=== PATIENT | male | born 1985 | race Caucasian/White ===

== ENCOUNTER 2022-01-02 14:37 | Emergency (ER) | payer BC, SELFPAY ==
[2022-01-02] VITALS (21 sets, daily range): BP systolic 103–129; BP diastolic 61–81; PULSE 66–102; RESP 13–37; TEMP 36.6; O2SAT 97–100
--- NOTE | 2022-01-02 14:52 | XRR_ITS ---
PROCEDURE INFORMATION: Exam: XR Left Ribs Exam date and time: 01/02/2022 4:07 PM Age: 36 years old Clinical indication: Injury or trauma; Other: Stepped on by cow; Rib area; Blunt trauma (contusions or hematomas); Additional info: Cow stomped left anterior lower ribs TECHNIQUE: Imaging protocol: Radiologic exam of the Left ribs. Views: 2 views. COMPARISON: CR XR chest 1V portable [id number] 01/02/2022 4:05 PM FINDINGS: Bones/joints: No evidence of rib fracture. Soft tissues: Normal. XR/XR ribs LT 2V* [id number] IMPRESSION: No acute findings.
--- NOTE | 2022-01-02 14:52 | XRR_ITS ---
PROCEDURE INFORMATION: Exam: XR Left Tibia and Fibula Exam date and time: 01/02/2022 4:10 PM Age: 36 years old Clinical indication: Injury or trauma; Other: Stepped on by cow; Blunt trauma; Lower leg; Left TECHNIQUE: Imaging protocol: Radiologic exam of the Left tibia and fibula. Views: 2 views. COMPARISON: No relevant prior studies available. FINDINGS: Bones/joints: Osseous structures are intact. Negative for fracture. Soft tissues: Normal. XR/XR tibia fibula LT 2V [id number] IMPRESSION: No acute findings.
--- NOTE | 2022-01-02 14:52 | XRR_ITS ---
PROCEDURE INFORMATION: Exam: XR Left Foot Exam date and time: 01/02/2022 4:14 PM Age: 36 years old Clinical indication: Injury or trauma; Other: Stepped on by cow; Blunt trauma; Foot; Left TECHNIQUE: Imaging protocol: Radiologic exam of the Left foot. Views: 3 or more views. COMPARISON: CR XR tibia fibula LT 2V [id number] 01/02/2022 4:10 PM FINDINGS: Bones/joints: Osseous structures are intact. Negative for fracture. Joint spaces are preserved. Soft tissues: Normal. XR/XR foot LT min 3V* [id number] IMPRESSION: No acute findings.
--- NOTE | 2022-01-02 14:52 | XRR_ITS ---
PROCEDURE INFORMATION: Exam: XR Right Hand Exam date and time: 01/02/2022 4:17 PM Age: 36 years old Clinical indication: Injury or trauma; Other: Stepped on by cow; Blunt trauma (contusions or hematomas); Hand; Bilateral; Additional info: Cow stomped TECHNIQUE: Imaging protocol: Radiologic exam of the Right hand. Views: 3 or more views. COMPARISON: No relevant prior studies available. FINDINGS: Bones/joints: Nondisplaced comminuted fracture of the distal tuft of the 1st digit. The rest of the osseous structures of the hand are intact. Soft tissues: Wound along the 1st digit. XR/XR hand RT min 3V* [id number] IMPRESSION: Nondisplaced comminuted fracture of the distal tuft of the 1st digit.
--- NOTE | 2022-01-02 14:52 | XRR_ITS ---
PROCEDURE INFORMATION: Exam: XR Left Hand Exam date and time: 01/02/2022 4:16 PM Age: 36 years old Clinical indication: Injury or trauma; Other: Stepped on by cow; Blunt trauma (contusions or hematomas); Hand; Bilateral; Additional info: Cow stomped TECHNIQUE: Imaging protocol: Radiologic exam of the Left hand. Views: 3 or more views. COMPARISON: No relevant prior studies available. FINDINGS: Bones/joints: Osseous structures are intact. Negative for fracture. Joint spaces are preserved. Soft tissues: Normal. XR/XR hand LT min 3V* [id number] IMPRESSION: No acute findings.
--- NOTE | 2022-01-02 14:52 | XRR_ITS ---
PROCEDURE INFORMATION: Exam: XR Chest Exam date and time: 01/02/2022 4:05 PM Age: 36 years old Clinical indication: Injury or trauma; Other: Stepped on by cow; Blunt trauma (contusions or hematomas); Additional info: Cow stomped TECHNIQUE: Imaging protocol: Radiologic exam of the chest. Views: 1 view. COMPARISON: No relevant prior studies available. FINDINGS: Lungs: Unremarkable. No consolidation. Pleural spaces: Unremarkable. No pleural effusion. No pneumothorax. Heart/Mediastinum: Unremarkable. No cardiomegaly. Bones/joints: Unremarkable. XR/XR chest 1V portable [id number] IMPRESSION: No acute findings.
--- NOTE | 2022-01-02 14:57 | PC.NURSE ---
pt reports he was loading cattle when one of the last cows decided to turn around. States his left foot got caught in the gate and the cow pushed through, pt said stretching me out. Pt denies being stepped on by cow. Pt c/o pain to left foot, left side of ribs, and right hand. laceration to right hand along index finger and thumb. abrasion to left hand, left foot, and left ankle. no visual abnormalities seen to chest, abdomen, or extremities. pedal pulses palpable to BLE. pt appears to have decreased ROM to LLE. PERRL. speech clear. speaking in complete sentences without difficulty.
[2022-01-02 15:07] LABS: Basophils # 0.1 10^3/uL (0.0-0.1); Basophils % 0.7 %; Eosinophils % 0.5 %; Hematocrit 45.3 % (42.0-52.0); Hemoglobin 15.4 g/dL (11.7-16.6); Lymphocytes # 2.4 10^3/uL (0.8-4.8); Lymphocytes % 31.4 %; Mean Corpuscular Hemoglobin 28.8 pg (28.0-34.0); Mean Corpuscular Volume 84.8 fl (80-94); Mean Platelet Volume 9.9 fL (7.4-10.4); Monocytes # 0.5 10^3/uL (0.2-0.9); Monocytes % 6.5 %; Neutrophils # 4.66 10^3/uL (1.8-7.7); Neutrophils % 60.6 %; Nucleated Red Blood Cells % 0 %; Platelet Count 385 10^3/cmm (130-400); Red Blood Count 5.34 10^6/uL (4.1-5.3); Red Cell Distribution Width 12.2 % (12.1-15.1); White Blood Count 7.7 10^3/uL (4.0-10.0)
[2022-01-02] MEDS: tetanus-dipt-pertussis 0.5 mL SDV IM (15:25)
[2022-01-02] MEDS: ondansetron 2 mg/ML SDV 2 mL 4 MG IVP (15:28)
[2022-01-02] MEDS: LORazepam 2 mg/mL INJ 1 mL 1 MG IVP (15:32)
[2022-01-02 15:34] LABS: Alanine Aminotransferase 21 U/L (0-41); Albumin Level 4.6 g/dL (3.5-5.2); Alkaline Phosphatase 65 U/L (40-130); Anion Gap 20.6 (5-19); Aspartate Amino Transferase 20 U/L (0-40); Blood Urea Nitrogen 14 mg/dL (6-20); Calcium 9.9 mg/dL (8.5-10.5); Carbon Dioxide 19 mmol/L (22-29); Chloride 100 mmol/L (98-107); Globulin 2.7 g/dL (1.3-4.6); Glomerular Filtration Rate 76.2 mL/min (90-130); Glucose 170 mg/dL (65-115); Osmolality Calculated 286 mOsm/kg (285-295); Potassium 3.6 mmol/L (3.5-5.1); Sodium 136 mmol/L (136-145); Total Bilirubin 0.8 mg/dL (0.15-1.2); Total Protein 7.3 g/dL (6.6-8.7)
[2022-01-02] MEDS: HYDROmorphone 1 mg/mL INJ 1 mL 0.5 MG IVP (15:34)
--- NOTE | 2022-01-02 17:37 | ED_ITS ---
HPI - Trauma General: Chief Complaint: Trauma Stated Complaint: cow ran over Time Seen by Provider: 01/02/22 14:40 Source: patient Mode of arrival: EMS Limitations: no limitations History of Present Illness: 36-year-old male was loading a cow onto a trailer. He got into a bad spot and the cow backed him up. He got stepped on on his right thumb and left ankle and foot. He got a bruise and some pain down the right hyman and an abrasion and bruise over his left MCPs. His left rib cage is painful. His tetanus does need updated. Associated symptoms: Denies abdominal pain, back pain, headache(s), nausea, syncope or vomiting Review of Systems General: Reports: 10 or more systems reviewed and unremarkable except in HPI and below Const: Reports: other (Left chest wall pain) Eyes: Denies: change in vision ENMT: Denies: throat pain Card: Denies: edema or syncope Resp: Denies: dyspnea or productive cough GI: Denies: abdominal pain, nausea, vomiting or diarrhea : Denies: flank pain, dysuria or urinary frequency Musc: Reports: extremity pain and joint pain (Right thumb); Denies: neck pain or back pain Skin/Breast: Reports: other (Laceration) Neuro: Reports: numbness in extremities (Numbness in the right thumb); Denies: headache(s), weakness in extremities, lack of coordination or difficulty walking Psych: Reports: anxiety Physical Exam Const: COMMON NORMALS: average body habitus, patient oriented x3, no limitations, healthy appearing, alert and well nourished EXAM LIMITATIONS: other limitations (anxiety/panic) HENMT: COMMON NORMALS: normocephalic, atraumatic and external ears normal HEAD & SCALP: normocephalic and atraumatic FACE & SINUS: normal facial exam and face symmetric EXTERNAL EAR: Yes external ears normal MOUTH: no muffled voice Eye: COMMON NORMALS: EOMs intact bilaterally and conjunctivae normal CONJUNCTIVA: Yes conjunctivae normal Neck/C-Spine: COMMON NORMALS: no JVD GENERAL: Yes normal visual inspection and Yes trachea midline CERVICAL SPINE: Yes cervical ROM normal, No pain with cervical ROM and No collar present Chest: CHEST: No abnormal inspection of the chest, Yes Symmetrical chest wall rise, No crepitus, No localized rib tenderness with anteroposterior compression, No Sternal flail present, Yes tenderness (left anterior inferior ribs), No abrasion, No Ecchymosis present and No wounds Resp: COMMON NORMALS: normal respiratory effort, No use of accessory muscles and clear to auscultation bilaterally AUSCULTATION: clear to auscultation bilaterally Cardio: COMMON NORMALS: no JVD, regular rate and regular rhythm RATE: re gular rate RHYTHM: regular rhythm GI: COMMON NORMALS: Soft to palpation PALPATION: Yes Soft to palpation, No Tenderness to palpation present (GI) and No Guarding due to palpation present (GI) Back/Pelvis: GENERAL BACK: No ecchymosis, No swelling and No tenderness PELVIS: Yes no pain with anterior-posterior compression and Yes no pain with lateral compression Extremity: NARRATIVE EXTREMITY EXAM: RUE: large laceration right thumb. Tendons are intact with oppostion, flexion, extension, abduction. Probable open fracture. No other RUE wounds/trauma noted. The wound does have some debris around the margins. LUE: contusion and abrasion over 2-4 mcps, otherwise unremarkable. SMCs normal. RLE: contusion right hyman, no suspected fractures. AROM and PROM normal throughout. LLE: Swelling, bruising, tenderness left ankle and foot. Pulses normal. Sensation normal. Neuro: COMMON NORMALS: patient oriented x3, moves all extremities, no focal motor deficits and no sensory deficits noted SENSORIUM/ORIENTATION: Yes alert Psych: COMMON NORMALS: mental status grossly normal, Normal thought process present, cooperative, normal affect and speech normal SPEECH: Yes normal speech THOUGHT PROCESS: Normal thought process present Skin: COMMON NORMALS: no rashes or lesions noted, turgor normal and no jaundice GENERAL SKIN EXAM: no rashes or lesions noted and turgor normal Procedures Laceration Laceration 1: Site: hand (right first finger) Side (If applicable): right Size (cm): 5 Description: irregular and contaminated Depth: involves muscle layer and involves tendon Local Anesthetic: lidocaine 1% Amount of anesthesia used (mL): 5 Pre-repair: wound explored and irrigated extensively (iodine/saline mixture 1.5 liters (scrub, spray, pressure with syringe), hydrogen peroxide 20 cc) Size (cm): 3-0 Number of sutures: 3 Technique: simple, interrupted Nerve Block Nerve Block 1: Time out performed: No (Patient, site identified. Allergies identified.) Local Anesthetic: lidocaine 1% Amount of anesthesia used (mL): 5 Side: right Nerve Blocks: digital Procedure Successful: Yes Patient Tolerated Procedure: well Complications: none Course Vital Signs: Vital signs: Vital Signs Temperature 97.8 F 01/02/22 14:49 Pulse Rate 83 01/02/22 19:35 Respiratory Rate 17 01/02/22 19:35 Blood Pressure 129/78 01/02/22 19:35 Pulse Oximetry 98 01/02/22 19:35 MDM - Trauma Medical Decision Making No life threatening trauma. ABCs intact on primary exam. Xrays obtained. No fractures of the LUE, RLE, LLE. There is an open fracture of the right thumb, at the tuft. There is a large laceration on the ulnar aspect and some numbness on that aspect of the finger. The thumbnail is not attached except at the base/cuticle. Dr Crowell was consulted and examined the patient in the ER. He has advised copious irrigation of the wound and loose closure; prescribe augmentin. He will follow-up patient in clinic. He does not advise any operative treatment. I extensively cleaned the wound with saline, then saline mixed with povidone iodine, then scrubbed, then pressure washed it with a syringe and needle then scrubbed again and irrigated it again. Per orthopedic surgery recommendations, the wound was closed loosely with 3 large bites from 3-0 Prolene. Patient was discharged with anti-inflammatories, pain medication, antibiotics. Case management has been consulted to help arrange for follow-up on Saturday with orthopedic surgery. Patient was given return precautions. A prefabricated splint was applied to the left ankle and crutches were supplied. Lab Data 01/02/22 Unknown 01/02/22 Unknown Radiology Impressions Chest X-Ray 01/02/22 14:52 IMPRESSION: No acute findings. Foot X-Ray 01/02/22 14:52 IMPRESSION: No acute findings. Hand X-Ray 01/02/22 14:52 IMPRESSION: Nondisplaced comminuted fracture of the distal tuft of the 1st digit. Ribs X-Ray 01/02/22 14:52 IMPRESSION: No acute findings. Tibia/Fibula X-Ray 01/02/22 14:52 IMPRESSION: No acute findings. Laboratory Results WBC 7.7 10^3/uL (4.0-10.0) 01/02/22 Unknown RBC 5.34 10^6/uL (4.1-5.3) H 01/02/22 Unknown Hgb 15.4 g/dL (11.7-16.6) 01/02/22 Unknown Hct 45.3 % (42.0-52.0) 01/02/22 Unknown MCV 84.8 fl (80-94) 01/02/22 Unknown MCH 28.8 pg (28.0-34.0) 01/02/22 Unknown MCHC 34.0 g/dL (30.0-36.0) 01/02/22 Unknown RDW 12.2 % (12.1-15.1) 01/02/22 Unknown Plt Count 385 10^3/cmm (130-400) 01/02/22 Unknown MPV 9.9 fL (7.4-10.4) 01/02/22 Unknown Neut % (Auto) 60.6 % 01/02/22 Unknown Lymph % (Auto) 31.4 % 01/02/22 Unknown [place] % (Auto) 6.5 % 01/02/22 Unknown Eos % (Auto) 0.5 % 01/02/22 Unknown Baso % (Auto) 0.7 % 01/02/22 Unknown Neut # (Auto) 4.66 10^3/uL (1.8-7.7) 01/02/22 Unknown Lymph # (Auto) 2.4 10^3/uL (0.8-4.8) 01/02/22 Unknown [place] # (Auto) 0.5 10^3/uL (0.2-0.9) 01/02/22 Unknown Eos # (Auto) 0.0 10^3/uL (0.0-0.8) 01/02/22 Unknown Baso # (Auto) 0.1 10^3/uL (0.0-0.1) 01/02/22 Unknown Nucleated RBC % (auto) 0 % 01/02/22 Unknown Nucleated RBCs # 0.0 /100WBC 01/02/22 Unknown Sodium 136 mmol/L (136-145) 01/02/22 Unknown Potassium 3.6 mmol/L (3.5-5.1) 01/02/22 Unknown Chloride 100 mmol/L (98-107) 01/02/22 Unknown Carbon Dioxide 19 mmol/L (22-29) L 01/02/22 Unknown Anion Gap 20.6 (5-19) H 01/02/22 Unknown BUN 14 mg/dL (6-20) 01/02/22 Unknown Creatinine 1.1 mg/dL (0.7-1.2) 01/02/22 Unknown GFR Calculation 76.2 mL/min (90-130) L 01/02/22 Unknown Glucose 170 mg/dL (65-115) H 01/02/22 Unknown Calculated Osmolality 286 mOsm/kg (285-295) 01/02/22 Unknown Calcium 9.9 mg/dL (8.5-10.5) 01/02/22 Unknown Total Bilirubin 0.8 mg/dL (0.15-1.2) 01/02/22 Unknown AST 20 U/L (0-40) 01/02/22 Unknown ALT 21 U/L (0-41) 01/02/22 Unknown Alkaline Phosphatase 65 U/L (40-130) 01/02/22 Unknown Total Protein 7.3 g/dL (6.6-8.7) 01/02/22 Unknown Albumin 4.6 g/dL (3.5-5.2) 01/02/22 Unknown Globulin 2.7 g/dL (1.3-4.6) 01/02/22 Unknown Discharge Plan Discharge Patient Disposition: Home Clinical Impression: Contusion of hand, left, Abrasion of hand, left, Open fracture of right thumb, Laceration of right thumb with damage to nail, Contusion of lower limb, right, Sprain and strain of left ankle, Contusion of left lower leg, initial encounter Condition: Stable Prescriptions: New amoxicillin-pot clavulanate 875-125 mg tablet 1 tab PO BID Qty: 20 0RF hydrocodone-acetaminophen 7.5-325 mg tablet 1 tab PO Q6H PRN (Reason: pain) 4 Days Qty: 14 0RF naproxen 375 mg tablet 375 mg PO BID 7 Days Qty: 14 0RF (DME) Xeroform Petrolatum Dressing 2 X 2 bandage See Rx Instructions .ROUTE Qty: 30 0RF Rx Instructions: As directed Discharge Orders: Discharge ED (Routine); Ordered 01/02/22 Ordered By: Blaine Ramsay Referrals: Shaun Crowell MD [Physician] - 01/08/22 (Right thumb laceration, open fracture) Discharge Diet: Usual diet Discharge Activity: Use walker/crutches as instructed Patient Instructions: Ankle Sprain (ED), Acute Wound Care (ED), Finger Laceration (ED), Opioid Safety, Pain Management Activity Restrictions/Additional Instructions: Change dressing daily. Keep wound clean and dry. Take naproxen twice daily for pain. You can take hydrocodone if you have severe pain, take a laxative bc you will get constipated. Follow-up with Dr Crowell on Saturday next week. Call to confirm the appointment. Take antibiotics as prescribed. Take probiotics from over the counter for one month. Return if there are signs of infection (see handout). Coding Level of Care Code ED [employer] for [employer]in Tovar
[2022-01-02] MEDS: ondansetron 4 MG Tablet PO (17:55)
[2022-01-02] MEDS: HYDROcodone-acetaminophen 10-325 mg Tablet 1 TAB PO (17:55)
[2022-01-02] MEDS: metroNIDAZOLE IV 500 MG/100 ML PREMIX 100 MG IV (17:57)
[2022-01-02] MEDS: ciprofloxacin 400 MG/200 ML PREMIX 200 MG IV (18:01)
--- NOTE | 2022-01-02 19:17 | PC.NURSE ---
report given to CORTNEY Young to assume care
--- NOTE | 2022-01-03 10:27 | DCPLANNER ---
Addendum entered by Jayla Trujillo 01/23/22 13:41: Patient had a follow up appointment scheduled with ortho - patient did attend appointment. Addendum entered by Jayla Trujillo 01/04/22 09:49: Patient has a follow up appointment scheduled for Sunday, January 09, 2022 at 10:00 with ortho. Clinic will call patient with appointment information. Original Note: property claims manager had message to schedule a follow up for patient with ortho. property claims manager sent patients information to the front office staff at ortho. Patients information will be printed and reviewed. Clinic will call patient with appointment information.
== END 2022-01-02 19:37 | disposition home or self-care (01) ==
PROVIDERS: Emergency Provider Emergency Medicine
DX: S60.222A Contusion of left hand, initial encounter (principal); S80.12XA Contusion of left lower leg, initial encounter; S80.11XA Contusion of right lower leg, initial encounter; S60.512A Abrasion of left hand, initial encounter; S62.524B Nondisplaced fracture of distal phalanx of right thumb, initial encounter for open fracture; S93.402A Sprain of unspecified ligament of left ankle, initial encounter; S96.912A Strain of unspecified muscle and tendon at ankle and foot level, left foot, initial encounter; W55.29XA Other contact with cow, initial encounter; Z23 Encounter for immunization
CPT/HCPCS: 12002; 12042; 71045; 71100; 73130; 73590; 73630; 80053; 85025; 90471; 90715; 96365; 96367; 96375; 99285; J0744; J1170; J2060; J2405; J3490; Q0162

== ENCOUNTER → 2022-01-09 09:58 | Outpatient (BNVA) | payer BC, SELFPAY | PROVIDERS: Referring Provider Emergency Medicine; Visit Provider Orthopaedic Surgery | DX: S62.521A Displaced fracture of distal phalanx of right thumb, initial encounter for closed fracture (principal) | CPT/HCPCS: 73130 ==